=== PATIENT | female | born 1980 | race Asian ===

== ENCOUNTER 2023-10-22 17:58 | Emergency (ER) | payer OTHER ==
[~2023-10-22] VITALS: Ht 170.2 cm; Wt 85.0 kg
[2023-10-22 18:07] VITALS: TEMP 98.5; O2SAT 99
[2023-10-22] MEDS: MORPHINE SULFATE 4 MG/ML INJ (FOR IV/IM USE) IV STA (18:21)
[2023-10-22] MEDS: PROPOFOL 200MG/20ML VIAL IV ONE (20:36)
[2023-10-22 22:10] LABS: BASOPHILS % 0.4 % (0.0-2.0); EOSINOPHILS % 0.2 % (0.0-5.0); HEMATOCRIT. 36.9 % (36.0-48.0); HEMOGLOBIN. 12.3 g/dL (12.0-16.0); LYMPHOCYTES % 12.5 % (20.0-50.0); MEAN CORPUSCULAR HEMOGLOBIN 30.5 pg (28.0-32.0); MEAN CORPUSCULAR HGB CONC 33.5 g/dL (31.0-37.0); MEAN CORPUSCULAR VOLUME 91.1 fL (81.0-99.0); MEAN PLATELET VOLUME 7.5 fl (7.4-10.4); MONOCYTES % 6.8 % (2.0-8.0); NEUTROPHILS % 80.1 % (40.0-76.0); PLATELET 361 x1000/uL (130-400); RED BLOOD CELL COUNT 4.05 mill/uL (4.2-5.4); RED CELL DISTRIBUTION WIDTH 13.1 % (11.6-14.6); WHITE BLOOD COUNT 11.5 x1000/uL (4.5-11.0)
[2023-10-22 22:12] LABS: CHLORIDE 104 mEq/L (98-107); SODIUM 138 mEq/L (136-145)
[2023-10-22 22:13] LABS: CALCIUM 9.3 mg/dL (8.7-10.4); CARBON DIOXIDE 26 mEq/L (21-32)
[2023-10-22 22:15] LABS: PROTHROMBIN TIME 10.9 sec (9.6-11.0)
[2023-10-22] MEDS ORDERED: CLONIDINE 0.1MG TABLET PO PRN (22:15)
[2023-10-22] MEDS ORDERED: MORPHINE SULFATE 2 MG/ML CPJ (NOT FOR IM USE) IV PRN (22:15)
[2023-10-22] MEDS ORDERED: HYDROCODONE/ACETAMINOPHEN 5/325MG TABLET PO PRN (22:15)
[2023-10-22] MEDS ORDERED: ONDANSETRON HCL 4MG/2ML INJ IV PRN (22:15)
[2023-10-22] MEDS ORDERED: ACETAMINOPHEN 325MG TABLET PO PRN ×2 (22:15)
[2023-10-22] MEDS ORDERED: IPRATROPIUM/ALBUTEROL 0.5-3(2.5)MG/3ML NEB HHN PRN (22:15)
[2023-10-22] MEDS ORDERED: NALOXONE HCL 0.4MG/ML VIAL IV PRN (22:15)
[2023-10-22] MEDS ORDERED: DOCUSATE SODIUM 100MG CAPSULE PO PRN (22:15)
[2023-10-22 22:18] LABS: CREATININE 0.9 mg/dL (0.6-1.0); GLUCOSE 89 mg/dL (70-105); UREA NITROGEN BLOOD 13 mg/dL (9-23)
[2023-10-22 22:19] LABS: HCG SCREEN NEGATIVE
[2023-10-22 23:00] VITALS: BP 133/93; PULSE 79; RESP 14
== END 2023-10-22 23:08 | disposition home or self-care (01) ==
LOC: ER 17:58 → EDBEDREQTM 21:49 → EDBEDREQ 21:49 → ER 23:08 → CANBEDREQ 10-24 21:27
DX: S82.891A Other fracture of right lower leg, initial encounter for closed fracture (principal); W01.0XXA Fall on same level from slipping, tripping and stumbling without subsequent striking against object, initial encounter; Y93.89 Activity, other specified; Y92.89 Other specified places as the place of occurrence of the external cause; Y99.8 Other external cause status
CPT/HCPCS: 27818; 80048; 84703; 85025; 85610; 86850; 86900; 86901; 36415; 73610; 73700; 99152; 99285; J2704; J2270